=== PATIENT | male | born 1945 | race Hispanic/Latino ===

== ENCOUNTER 2018-07-30 13:41 | Inpatient (IN) | payer MEDICARE, SELFPAY ==
[~2018-07-30 13:41] MED LIST: ISOVUE-370 76%-LOCM 1 ML ONE
[2018-07-30 15:11] LABS: #Eosinphils 0.1 thou/uL (0.0-0.7); #Lymphocytes 0.9 thou/uL (1.20-3.40); #Monocytes 0.5 thou/uL (0.11-0.59); #Neutrophils 8.7 thou/uL (1.40-6.50); %Basophils 0.4 % (0.0-1.0); %Eosinophils 0.5 % (0.0-10.0); %Lymphocytes 9.2 % (21.0-51.0); %Neutrophils 84.9 % (42.0-75.0); Hemoglobin 18.1 g/dL (14.0-18.0); Mean Corpuscular HGB CONC 33.5 g/dL (32.0-36.0); Mean Corpuscular Hemoglobin 31.1 pg (27.0-31.0); Mean Platelet Volume 9.4 fL (7.4-10.4); Platelet Count 220 thou/uL (130-400); RBC Distribution Width 12.7 % (11.5-14.5); Red Blood Cell (RBC) Count 5.82 mill/uL (4.70-6.10); White Blood Cell (WBC) Count 10.2 thou/uL (4.8-10.8)
[2018-07-30 15:32] LABS: Bilirubin Small (Negative); Blood, Urine Negative (Negative); Clarity CLOUDY (Clear); Glucose, Urine (Dipstick) Negative (Negative); Leukocyte Trace (Negative); Nitrite Negative (Negative); Protein, Urine (Dipstick) 100 mg/dL (Neg-Trace); Specific Gravity, Urine 1.028 (1.002-1.036); Urobilinogen 0.2 mg/dL (0.2-1.0); pH, Urine 5.5 (5.0-9.0)
[2018-07-30 15:35] LABS: ALT (SGPT) 32 U/L (8-55); AST (SGOT) 18 U/L (5-34); Albumin 5.1 g/dL (3.4-4.8); Alkaline Phosphatase 80 U/L (40-150); Anion Gap 18 mmol/L (10-20); BUN (Urea Nitrogen) 39 mg/dL (8.4-25.7); Bilirubin, Total 0.8 mg/dL (0.2-1.2); Calc. Creatinine Clearance 0 mL/min (70-130); Calcium 10.6 mg/dL (7.8-10.44); Carbon Dioxide 24 mmol/L (23-31); Chloride 101 mmol/L (98-107); Estimated GFR-MDRD 40; Globulin 3.9 g/dL (2.4-3.5); Glucose 142 mg/dL (80-115); Lipase 24 U/L (8-78); Sodium 139 mmol/L (136-145)
[2018-07-30 15:36] LABS: Bacteria/HPF None Seen HPF (None Seen); Squamous Epithelial 0-3 HPF (0-3)
[2018-07-30 15:37] LABS: Pathc Cast-AUWi Flag 10.33 (0-2.49)
[2018-07-30 15:47] LABS: Other Casts/LPF 4-6 FINELY GRAN LPF (0-3 Hyaline)
[2018-07-30 15:48] LABS: RBC/HPF 0-3 HPF (0-3)
[2018-07-30 18:48] LABS: Troponin I Less than 0.010 ng/mL (< 0.028)
--- NOTE | 2018-07-30 18:59 | CT ---
CT abdomen with contrast CT pelvis with contrast: DATE: 07/30/2018 HISTORY: 72-year-old male with generalized abdominal pain and bloating COMPARISON: None TECHNIQUE: IV injection of iodinated contrast media:Administered Oral contrast media:Not administered FINDINGS: Dilated, fluid-filled numerous loops of small intestine throughout the abdominal cavity. Dilated, fluid-filled stomach. Gas in stomach and small intestine. There is also fluid and gas throug hout nondilated colon. No evidence of appendicitis. 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 No pneumoperitoneum or ascites. No abdominal aortic aneurysm. No hydronephrosis. Several bilateral round moderately low density lesions in the renal parenchyma, too small to characte rize. At least most of them are cysts. Several hepatic cysts. No biliary ductal dilation. Normal pancreas, adrenals, and spleen. Enlarged prostate gland. Distal ileum, including the terminal ileum, are not dilated Questionable transition points in the small intestine in left lower quadrant and the right lower quad rant. IMPRESSION: 1) abnormal bowel. Suspected to represent at least partial small bowel obstruction. The other possibi lities are gastroenteritis or ileus. 2) saccular aneurysm of left common iliac artery.
[2018-07-30] MEDS ORDERED: Sodium Chloride 0.9% 1,000 ML IV SCH (21:59)
[2018-07-30] MEDS ORDERED: Ondansetron PF 4 MG/2 ML Vial IVP PRN ×2 (21:59→22:10)
[2018-07-30] MEDS ORDERED: Morphine 4 MG/ML VIAL SLOW IVP PRN ×2 (22:01→22:10)
[2018-07-30] MEDS ORDERED: hydrALAZINE 20 MG/ML VIAL SLOW IVP PRN (22:10)
[2018-07-30] MEDS ORDERED: Acetaminophen 650 MG Suppository PR PRN (22:10)
[2018-07-30 22:18] VITALS: BMI 26.8
[2018-07-30] MEDS: Sodium Chloride 0.9% 1,000 ML IV SCH (22:24)
--- NOTE | 2018-07-30 22:42 | HP ---
PRIMARY CARE PHYSICIAN: Dr. Hakeem Poole. REASON FOR ADMISSION: Partial small-bowel obstruction. HISTORY OF PRESENT ILLNESS: A 72-year-old male who presented to emergency room with abdominal distention. The patient reports that yesterday, he had a liquidy bowel movement without any pus or blood. He had several loose the loose stool and since then, the patient is experiencing abdominal distention. He did not have any further bowel movement since yesterday and he denies any nausea and vomiting. He has experienced initially crampy abdominal discomfort, but now he only feels abdominal distention, which is gradually getting worse. He has bloating and he is burping, but he denies any vomiting. He never had this type of problem before. He did not eat since yesterday. The patient denies any unusual food ingestion. He denies any fever or chills. He denies any chest pain, palpitation, or shortness of breath. He denies any UTI symptoms. REVIEW OF SYSTEMS: CONSTITUTIONAL: Negative for weight loss or gain, ability to conduct usual activities. SKIN: Negative for rash, itching. EYES: Negative for double vision, pain. ENT/MOUTH: Negative for nose bleeding, neck stiffness, pain, tenderness. CARDIOVASCULAR: Negative for palpitations, dyspnea on exertion, orthopnea. RESPIRATORY: Negative for shortness of breath, wheezing, cough, hemoptysis, fever or night sweats. GASTROINTESTINAL: Negative for poor appetite, abdominal pain, heartburn, nausea, vomiting, constipation, or diarrhea. GENITOURINARY: Negative for urgency, frequency, dysuria, nocturia. MUSCULOSKELETAL: Negative for pain, swelling. NEUROLOGIC/PSYCHIATRIC: Negative for anxiety, depression. ALLERGY/IMMUNOLOGIC: Negative for skin rash, bleeding tendency. Please see my HPI for pertinent positives and negatives. All other review of systems reviewed and negative except as mentioned in HPI. PAST MEDICAL HISTORY: The patient denies any previous medical history. PAST SURGICAL HISTORY: Left hand surgery. PAST PSYCHIATRIC HISTORY: Reviewed and negative. SOCIAL HISTORY: The patient lives at home with family. No history of tobacco, alcohol, or illicit drug abuse. FAMILY HISTORY: No family history of coronary artery disease, stroke, or cancer. ALLERGIES: NO KNOWN DRUG ALLERGY. CURRENT HOME MEDICATIONS: The patient is not on any specific medication at this point. EMERGENCY ROOM COURSE: The patient is given IV fluid. PHYSICAL EXAMINATION: VITAL SIGNS: Currently, blood pressure 129/86, pulse 98, respiratory rate 12, temperature 98.6, saturation 99% on room air. Weight 81.6 kg. GENERAL: The patient is currently alert, awake, in no obvious acute distress. HEENT: Head; normocephalic, atraumatic. Eyes; pupils round, reactive to light. Extraocular muscle intact. ENT: Oropharynx within normal limits. Moist mucous membranes. No oral lesion. No pharyngeal erythema. No exudate. NECK: Supple. No JVD. No thyromegaly. No carotid bruit. No jugular venous distention. LUNGS: Clear to auscultation without any rhonchi or rales. CARDIAC: S1, S2 regular. No murmur. No gallop. No rub. ABDOMEN: The patient does have abdominal distention. Appears soft. No peritoneal sign. No guarding. No rigidity. Very sluggish bowel sound with a tinkling sound. No peritoneal sign. No suprapubic discomfort. BACK: Examination unremarkable. No CVA tenderness. EXTREMITIES: Upper extremity, passive movement of all joints are normal. Lower extremity, no edema. Good distal pulsation. SKIN: No skin rash. HEMATOLOGICAL SYSTEM: No lymphadenopathy. PSYCHIATRIC: Normal affect. SIGNIFICANT LABORATORY DATA: EKG showing sinus tachycardia, nonspecific ST-T changes. CT abdomen and pelvis showing abnormal bowel, suspected for partial small-bowel obstruction. Saccular aneurysm of left common iliac artery. CBC; WBC 10.2, hemoglobin 18.1, platelets 220. BMP; sodium 139, potassium 4.0, chloride 101, carbon dioxide 24, anion gap 18, BUN 39, creatinine 1.71, glucose 142, calcium 10.6. LFT; AST 18, ALT 32, alkaline phosphatase 80, albumin 5.1, lipase 24 less than 0.010. Urinalysis, leukocyte esterase trace, ketone trace, protein 100. ASSESSMENT AND PLAN: 1. Partial small-bowel obstruction. I am suspecting that this patient most likely has gastroenteritis and subsequent mild ileus rather than any mechanical obstruction. At this point, we will keep him n.p.o. General Surgery will be consulted for their opinion. We will treat symptomatologically and we will continue with the IV fluid for hydration. If the patient does have no recurrent nausea, vomiting, and abdominal distention gets worse, then we will consider NG tube with low intermittent suction if needed. At this point, clinically it does not appear to be needed at this point, NG tube, but we will closely monitor in hospital. 2. Acute kidney failure, likely due to volume depletion. The patient will be given IV fluid and we will repeat labs tomorrow. The patient has underlying hemoconcentration as well as elevated BUN and creatinine ratio, hypercalcemia and elevated albumin, all points towards dehydration. 3. Saccular aneurysm of left common iliac artery. The patient will need outpatient followup. At this point, the patient does not have any symptoms associated with this. 4. Enlarged prostate based on the CT scan, but the patient does not have any lower urinary tract symptoms. The patient will need outpatient followup. 5. Deep venous thrombosis prophylaxis, Lovenox 40 mg subcu daily. 6. Gastrointestinal prophylaxis, Pepcid 20 mg IV daily. CODE STATUS: The patient is full code. The patient's is surrogate decision maker. DISPOSITION PLAN: Based on clinical course. Plan of care discussed with the patient and family member in the emergency room in detail. Job ID: [id number]
[2018-07-31 06:06] LABS: #Lymphocytes 0.8 thou/uL (1.20-3.40); #Monocytes 0.7 thou/uL (0.11-0.59); #Neutrophils 6.1 thou/uL (1.40-6.50); %Basophils 0.5 % (0.0-1.0); %Eosinophils 0.3 % (0.0-10.0); %Lymphocytes 10.1 % (21.0-51.0); %Monocytes 9.3 % (0.0-10.0); %Neutrophils 79.8 % (42.0-75.0); Hemoglobin 15.8 g/dL (14.0-18.0); Mean Corpuscular HGB CONC 33.4 g/dL (32.0-36.0); Mean Corpuscular Hemoglobin 30.8 pg (27.0-31.0); Mean Corpuscular Volume 92.3 fL (78.0-98.0); Mean Platelet Volume 9.8 fL (7.4-10.4); Platelet Count 177 thou/uL (130-400); RBC Distribution Width 12.8 % (11.5-14.5); Red Blood Cell (RBC) Count 5.11 mill/uL (4.70-6.10); White Blood Cell (WBC) Count 7.6 thou/uL (4.8-10.8)
[2018-07-31 06:27] LABS: Anion Gap 14 mmol/L (10-20); BUN (Urea Nitrogen) 46 mg/dL (8.4-25.7); Calc. Creatinine Clearance 63 mL/min (70-130); Calcium 8.7 mg/dL (7.8-10.44); Carbon Dioxide 19 mmol/L (23-31); Chloride 110 mmol/L (98-107); Estimated GFR-MDRD 58; Glucose 124 mg/dL (80-115); Potassium 3.6 mmol/L (3.5-5.1); Sodium 139 mmol/L (136-145)
[2018-07-31] MEDS: Sodium Chloride 0.9% 1,000 ML IV SCH ×3 (06:30→22:16)
[2018-07-31] MEDS: Enoxaparin Sodium 40 MG/0.4 ML SYRINGE SC SCH (09:32)
[2018-07-31] MEDS: Famotidine/PF 20 mg/2ml Vial SLOW IVP SCH ×2 (09:32→22:16)
--- NOTE | 2018-07-31 15:38 | PDOC.PN ---
- Subjective Encounter Start Date: 07/31/18 Encounter Start Time: 09:50 Subjective: is passing liq stools, mild abd pain 3/10 worse on coughing/sneezing -: no nausea or vomiting -: multiple family members in room - Objective Resuscitation Status - Order Detail: 07/30/18 22:08 Resuscitation Status Routine Resuscitation Status: FULL: Full Resuscitation MAR Reviewed: Yes Vital Signs & Weight: Vital Signs (12 hours) Temp Pulse Resp BP Pulse Ox 07/31/18 12:00 98.3 F 69 16 123/70 97 07/31/18 07:40 97.6 F 71 16 116/71 95 07/31/18 04:13 98 F 89 20 118/65 95 Weight Weight 176 lb 9.6 oz I&O: 07/30/18 07/31/18 08/01/18 06:59 06:59 06:59 Intake Total 1200 Balance 1200 Result Diagrams: 07/31/18 05:22 07/31/18 05:22 Phys Exam - Physical Examination HEENT: PERRLA, sclera anicteric Neck: no JVD, supple Respiratory: no wheezing, no rales Cardiovascular: RRR, no significant murmur Gastrointestinal: soft, no distention, positive bowel sounds no rigidity or guarding Musculoskeletal: no edema, pulses present Neurological: non-focal, moves all 4 limbs Psychiatric: normal affect, A&O x 3 Dx/Plan (1) SBO (small bowel obstruction) Code(s): K56.609 - UNSP INTESTNL OBST, UNSP TO PARTIAL VERSUS COMPLETE OBST Status: Suspected (2) Gastroenteritis Code(s): K52.9 - NONINFECTIVE GASTROENTERITIS AND COLITIS, UNSPECIFIED Status : Suspected (3) Metabolic acidosis Code(s): E87.2 - ACIDOSIS Status: Acute (4) BLANCO (acute kidney injury) Code(s): N17.9 - ACUTE KIDNEY FAILURE, UNSPECIFIED Status: Acute (5) Aneurysm of left common iliac artery Code(s): I72.3 - ANEURYSM OF ILIAC ARTERY Status: Acute - Plan continue iv fluids, npo -: await gen surgery opinion -: may start clear liq diet if cleared by surgery -: to ambulate in hallway -: stool studies are -ve for bact infection * . renal function almost getting back to baseline. D/w patient and family at bedside. Review of Systems - Medications/Allergies Allergies/Adverse Reactions: Allergies Allergy/AdvReac Type Severity Reaction Status Date / Time No Known Drug Allergies Allergy Verified 07/30/18 21:59 Medications: Current Medications Acetaminophen (Tylenol) 650 mg [place] Q4H PRN PRN Reason: Headache/Fever/Mild Pain (1-3) Enoxaparin Sodium (Lovenox) 40 mg SC 0900 [facility] Last Admin: 07/31/18 09:32 Dose: 40 mg Famotidine (Pepcid) 20 mg SLOW IVP Q12HR [facility] Last Admin: 07/31/18 09:32 Dose: 20 mg Hydralazine HCl (Apresoline) 10 mg SLOW IVP Q4H PRN PRN Reason: SBP Greater Than 170 Sodium Chloride (Normal Saline 0.9%) 1,000 mls @ 125 mls/hr IV .Q8H [facility] Last Admin: 07/31/18 14:17 Dose: 1,000 mls Morphine Sulfate (Morphine) 2 mg SLOW IVP Q4H PRN PRN Reason: Pain Ondansetron HCl (Zofran) 4 mg IVP Q6H PRN PRN Reason: Nausea/Vomiting
--- NOTE | 2018-07-31 21:12 | PDOC.EVN ---
Event Note - Event Note Event Note: Called by RN re: need for general surgery consult. Has not been called yet and asked if still needed. Per note from Dr. Brown today, it appears plan is for advance diet once cleared by surgery. Advised RN to proceed with consult as per plan.
[2018-08-01] MEDS: Sodium Chloride 0.9% 1,000 ML IV SCH ×3 (05:59→20:43)
--- NOTE | 2018-08-01 08:01 | CON ---
DATE OF CONSULTATION: REASON FOR CONSULT: Partial small bowel obstruction versus ileus. HISTORY: Mr. Garza is a 72-year-old man with 1-day history of abdominal distention and nausea. He states that he had diarrhea, but then the diarrhea stopped and he became very distended and uncomfortable. The bloating got worse and burping did not help. He was unable to eat because of the bloating. He has two family members who have had diarrhea recently, but none of them have had bloating or nausea. When I saw him last night, he stated that he had had multiple liquid bowel movements that morning and that he was passing gas and that the bloating and discomfort and nausea had completely resolved. He has never had any previous similar symptoms and has never had abdominal surgery. The discomfort was diffuse and neither exacerbated nor relieved by anything that he did. PAST MEDICAL HISTORY: None. PAST SURGICAL HISTORY: Hand surgery after an injury. SOCIAL HISTORY: The patient does not smoke, drink, or use illicit drugs. He is in the hospital with his . FAMILY HISTORY: Noncontributory. ALLERGIES: HE HAS NO KNOWN DRUG ALLERGIES AND DOES NOT TAKE ANY HOME MEDICATIONS. REVIEW OF SYSTEMS: Ten system review of systems is negative except per HPI. PHYSICAL EXAMINATION: VITAL SIGNS: The patient has been afebrile through his hospital stay. Heart rate is in the 60s, respirations 16, 99% saturated on room air, blood pressure 117/49. GENERAL: Reveals a healthy-appearing gentleman, in no acute distress. He is not flushed, toxic, jaundiced or icteric. HEENT: Unremarkable. NECK: Supple without lymphadenopathy or thyroid nodules. HEART: Regular in its rate and rhythm without murmurs, rubs, or gallops. LUNGS: Clear to auscultation bilaterally. ABDOMEN: Soft, nontender, and nondistended. There is no tympany. Bowel sounds are present and appear normal. No palpable masses or hernias. EXTREMITIES: Warm and well perfused without edema. NEURO: No focal deficits. PSYCHIATRIC: Alert, oriented and appropriate. LABORATORY DATA: White count 7.6, hematocrit 47, platelets 177. Electrolytes unremarkable. LFTs normal. Urine had trace leukocytes and 7 to 10 white cells, but no bacteria. CT images are reviewed. The patient has very dilated proximal small bowel loops and stomach. The remainder of the small bowel is variably dilated with some areas of decompressed bowel, which then become dilated again. The distal small bowel is definitely smaller in caliber than the proximal small bowel, but not decompressed. The colon is not decompressed that has gas and fluid throughout. ASSESSMENT: Likely ileus. I cannot see a definite transition point in the small intestine, although the distal small bowel is definitely smaller than the proximal small bowel and stomach. The patient has had multiple episodes of diarrhea and his bloating and nausea have resolved. I have ordered an abdominal film for the morning and depending on how this looks, we can either advance his diet, keep him n.p.o. or get a small-bowel follow-through. Job ID: [id number]
[2018-08-01] MEDS: Enoxaparin Sodium 40 MG/0.4 ML SYRINGE SC SCH (08:06)
[2018-08-01] MEDS: Famotidine/PF 20 mg/2ml Vial SLOW IVP SCH ×2 (08:06→20:39)
--- NOTE | 2018-08-01 10:36 | RAD ---
EXAM: XR Abdomen 2 View PROVIDED CLINICAL HISTORY: Small bowel obstruction COMPARISON: CT examination of 07/30/2018 FINDINGS: The visualized lung bases appear clear. There is no evidence for pneumoperitoneum. Gas-filled loop of dilated small bowel in the right upper quadrant. Few scattered air-fluid levels. No evidence for urinary tract calculi. The osseous structures demonstrate no acute findings. IMPRESSION: Overall nonspecific bowel gas pattern with single dilated loop of gas-filled small bowel and scattere d air-fluid levels.
--- NOTE | 2018-08-01 13:09 | PDOC.PN ---
- Subjective Encounter Start Date: 08/01/18 Encounter Start Time: 10:45 Subjective: no nausea or vomiting -: abd pain is very mild, had 2 loose stool from yesterday -: is ambulating in hallway - Objective Resuscitation Status - Order Detail: 07/30/18 22:08 Resuscitation Status Routine Resuscitation Status: FULL: Full Resuscitation MAR Reviewed: Yes Vital Signs & Weight: Vital Signs (12 hours) Temp Pulse Resp BP Pulse Ox 08/01/18 11:09 97.5 F L 56 L 16 119/71 97 08/01/18 08:00 97.9 F 66 16 120/72 97 08/01/18 04:55 98.4 F 58 L 16 114/67 95 Weight Weight 176 lb 9.6 oz I&O: 07/31/18 08/01/18 08/02/18 06:59 06:59 06:59 Intake Total 1200 1500 Balance 1200 1500 Result Diagrams: 07/31/18 05:22 07/31/18 05:22 Phys Exam - Physical Examination HEENT: PERRLA, moist MMs Neck: no nodes, no JVD Respiratory: no wheezing, no rales Cardiovascular: RRR, no significant murmur Gastrointestinal: soft, no distention, positive bowel sounds Musculoskeletal: no edema, pulses present Neurological: non-focal, moves all 4 limbs Psychiatric: normal affect, A&O x 3 Dx/Plan (1) SBO (small bowel obstruction) Code(s): K56.609 - UNSP INTESTNL OBST, UNSP TO PARTIAL VERSUS COMPLETE OBST Status: Suspected (2) Gastroenteritis Code(s): K52.9 - NONINFECTIVE GASTROENTERITIS AND COLITIS, UNSPECIFIED Status : Suspected (3) Metabolic acidosis Code(s): E87.2 - ACIDOSIS Status: Acute (4) BLANCO (acute kidney injury) Code(s): N17.9 - ACUTE KIDNEY FAILURE, UNSPECIFIED Status: Resolved (5) Aneurysm of left common iliac artery Code(s): I72.3 - ANEURYSM OF ILIAC ARTERY Status: Chronic - Plan d/w this am, likely ileus -: has not had any solid stool yet, abd pain is better -: is npo -: gentle iv hydration, watch for electrolytes -: renal function is normal today * . Review of Systems - Medications/Allergies Allergies/Adverse Reactions: Allergies Allergy/AdvReac Type Severity Reaction Status Date / Time No Known Drug Allergies Allergy Verified 07/30/18 21:59 Medications: Current Medications Acetaminophen (Tylenol) 650 mg [place] Q4H PRN PRN Reason: Headache/Fever/Mild Pain (1-3) Enoxaparin Sodium (Lovenox) 40 mg SC 0900 [facility] Last Admin: 08/01/18 08:06 Dose: 40 mg Famotidine (Pepcid) 20 mg SLOW IVP Q12HR [facility] Last Admin: 08/01/18 08:06 Dose: 20 mg Hydralazine HCl (Apresoline) 10 mg SLOW IVP Q4H PRN PRN Reason: SBP Greater Than 170 Sodium Chloride (Normal Saline 0.9%) 1,000 mls @ 125 mls/hr IV .Q8H [facility] Last Admin: 08/01/18 05:59 Dose: 1,000 mls Morphine Sulfate (Morphine) 2 mg SLOW IVP Q4H PRN PRN Reason: Pain Ondansetron HCl (Zofran) 4 mg IVP Q6H PRN PRN Reason: Nausea/Vomiting
[2018-08-02] MEDS: Sodium Chloride 0.9% 1,000 ML IV SCH (06:33)
[2018-08-02] MEDS: Enoxaparin Sodium 40 MG/0.4 ML SYRINGE SC SCH (07:50)
[2018-08-02] MEDS: Famotidine/PF 20 mg/2ml Vial SLOW IVP SCH (07:51)
[2018-08-02 08:41] LABS: #Eosinphils 0.1 thou/uL (0.0-0.7); #Lymphocytes 1.2 thou/uL (1.20-3.40); #Monocytes 0.4 thou/uL (0.11-0.59); %Basophils 0.5 % (0.0-1.0); %Eosinophils 1.6 % (0.0-10.0); %Lymphocytes 25.4 % (21.0-51.0); %Monocytes 8.4 % (0.0-10.0); %Neutrophils 64.1 % (42.0-75.0); Hemoglobin 14.7 g/dL (14.0-18.0); Mean Corpuscular HGB CONC 34.3 g/dL (32.0-36.0); Mean Corpuscular Hemoglobin 31.9 pg (27.0-31.0); Mean Corpuscular Volume 92.8 fL (78.0-98.0); Mean Platelet Volume 8.9 fL (7.4-10.4); Platelet Count 182 thou/uL (130-400); RBC Distribution Width 12.4 % (11.5-14.5); Red Blood Cell (RBC) Count 4.62 mill/uL (4.70-6.10); White Blood Cell (WBC) Count 4.7 thou/uL (4.8-10.8)
[2018-08-02 08:59] LABS: Anion Gap 6 mmol/L (10-20); BUN (Urea Nitrogen) 15 mg/dL (8.4-25.7); Calc. Creatinine Clearance 95 mL/min (70-130); Calcium 8.5 mg/dL (7.8-10.44); Carbon Dioxide 28 mmol/L (23-31); Chloride 110 mmol/L (98-107); Estimated GFR-MDRD Greater than 90; Glucose 92 mg/dL (80-115); Potassium 3.8 mmol/L (3.5-5.1); Sodium 140 mmol/L (136-145)
--- NOTE | 2018-08-02 11:31 | RAD ---
EXAM: 2 views abdomen PROVIDED CLINICAL HISTORY: Abdominal pain COMPARISON: 08/01/2018 FINDINGS: Visualized lung bases appear clear. Bowel gas pattern is nonobstructive. No radiographically apparent urinary tract calculi. No evidence for pneumoperitoneum. IMPRESSION: Nonobstructive bowel gas pattern.
[2018-08-02 11:53] VITALS: BP 138/77; TEMP 97.6
--- NOTE | 2018-08-02 12:25 | PDOC.GSPN ---
Surgery Progress Note: Subj - Subjective Narrative: Patient feels good. He denies any nausea or bloating. He has passed gas but hasn 't had a bowel movement. His abdominal films are unremarkable. No evidence of dilated small bowel loops or gastric distention. Abdomen is soft nontender nondistended. Bowel sounds are present. Assessment/plan: Partial small bowel obstruction versus more likely ileus. His symptoms have resolved and he is tolerating a full liquid diet. From my standpoint he can be discharged home, with slow advancement of diet as tolerated. Surgery Progress Note: Obj - Vital signs Vital signs: Vital Signs - Most Recent Temp Pulse Resp BP Pulse Ox 97.6 F 53 L 16 138/77 99 08/02/18 11:49 08/02/18 11:49 08/02/18 11:49 08/02/18 11:49 08/02/18 11:49 Surgery Progress Note: Results - Labs Result Diagrams: 08/02/18 08:08 08/02/18 08:08 Lab results: Laboratory Results - last 24 hr 08/02/18 08/02/18 08:08 08:08 WBC 4.7 L RBC 4.62 L Hgb 14.7 Hct 42.9 MCV 92.8 MCH 31.9 H MCHC 34.3 RDW 12.4 Plt Count 182 MPV 8.9 Neutrophils % 64.1 Lymphocytes % 25.4 Monocytes % 8.4 Eosinophils % 1.6 Basophils % 0.5 Neutrophils # 3.0 Lymphocytes # 1.2 Monocytes # 0.4 Eosinophils # 0.1 Basophils # 0.0 Sodium 140 Potassium 3.8 Chloride 110 H Carbon Dioxide 28 Anion Gap 6 L BUN 15 Creatinine 0.82 Estimated GFR (MDRD) Greater than 90 Glucose 92 Calcium 8.5
--- NOTE | 2018-08-02 12:29 | PDOC.PN ---
- Subjective Encounter Start Date: 08/02/18 Encounter Start Time: 11:00 Subjective: no abd pain or nausea -: is passing flatus, had a small bm -: is ambulating in hallway, at bedside - Objective Resuscitation Status - Order Detail: 07/30/18 22:08 Resuscitation Status Routine Resuscitation Status: FULL: Full Resuscitation MAR Reviewed: Yes Vital Signs & Weight: Vital Signs (12 hours) Temp Pulse Resp BP Pulse Ox 08/02/18 11:49 97.6 F 53 L 16 138/77 99 08/02/18 07:59 97.7 F 61 16 123/71 97 08/02/18 04:00 97.9 F 61 18 112/62 96 Weight Weight 176 lb 9.6 oz I&O: 08/01/18 08/02/18 08/03/18 06:59 06:59 06:59 Intake Total 1500 2940 720 Balance 1500 2940 720 Result Diagrams: 08/02/18 08:08 08/02/18 08:08 Phys Exam - Physical Examination HEENT: PERRLA, moist MMs Neck: no JVD, supple Respiratory: no wheezing, no rales Cardiovascular: RRR, no significant murmur Gastrointestinal: soft, non-tender, no distention, positive bowel sounds Musculoskeletal: no edema, pulses present Neurological: non-focal, moves all 4 limbs Psychiatric: normal affect, A&O x 3 Dx/Plan (1) SBO (small bowel obstruction) Code(s): K56.609 - UNSP INTESTNL OBST, UNSP TO PARTIAL VERSUS COMPLETE OBST Status: Resolved (2) Metabolic acidosis Code(s): E87.2 - ACIDOSIS Status: Acute (3) BLANCO (acute kidney injury) Code(s): N17.9 - ACUTE KIDNEY FAILURE, UNSPECIFIED Status: Resolved (4) Aneurysm of left common iliac artery Code(s): I72.3 - ANEURYSM OF ILIAC ARTERY Status: Chronic - Plan hemostable -: has been cleared by gen surgery for discharge -: outpt appt with [facility] surgery for aneurysm in 4-6 weeks. -: to advance diet per gen surgery rec * .
--- NOTE | 2018-08-02 18:52 | DIS ---
DATE OF ADMISSION: 07/30/2018 DATE OF DISCHARGE: 08/02/2018 DISCHARGE DISPOSITION: Home. PRIMARY DISCHARGE DIAGNOSES: Partial small bowel obstruction/ileus, resolved. Metabolic acidosis with acute kidney injury secondary to above, resolved. Incidental finding of saccular aneurysm of left common iliac artery, for outpatient followup. PROCEDURES DONE DURING HOSPITALIZATION: CT abdomen showed partial small bowel obstruction. There was incidental finding of saccular aneurysm of left common iliac artery, which was 3 cm in size and had partial chronic thrombosis in it. Two- view abdominal x-ray done on 08/02/2018, showed nonobstructive bowel gas pattern. Stool studies for Campylobacter, Shiga toxin and parasite screen were all negative. H and H 14 and 42 platelet count 182. Initial BUN and creatinine 39 and 1.7, discharge BUN creatinine of 15 and 0.8. DISCHARGE MEDICATION: Colace 100 mg p.o. daily. INPATIENT CONSULT: Dr. Norton for General Surgery. DISCHARGE PLAN: The patient to follow up with Dr. Alexy Hernández in 2 to 3 weeks for the saccular aneurysm in the left common iliac artery. He also needs to follow up with his primary care physician in 1 week. BRIEF COURSE DURING HOSPITALIZATION: The patient initially came to emergency room on the with complaints of abdominal distention and pain. Initial CAT scan done was suspicious for possible partial small bowel obstruction. The patient was kept n.p.o. and has had surgical consultation with Dr. Norton. He has had serial abdominal 2-view x-rays done, which shows complete resolution of his partial small-bowel obstruction/ileus. Prior to discharge, he is tolerating solid food and is ambulating well. His abdominal pain and distention have completely resolved. He is passing flatus and had a small bowel movement as well this morning. He has been cleared by Dr. Norton for discharge. Please see a [id number] documentation for the day of discharge on [facility]. Please note, the patient had incidental finding of left common iliac artery saccular aneurysm seen and needs outpatient followup with Dr. Hernández in 2 to 3 weeks, Cardiothoracic and Vascular Surgery. Job ID: [id number] [facility]
== END 2018-08-02 13:05 | disposition home or self-care (01) | DRG 389 ==
LOC: ERS 13:41 → SURG A 22:03
PROVIDERS: ADMIT Internal Medicine; ATTEND Internal Medicine
DX: K56.600 Partial intestinal obstruction, unspecified as to cause (principal); E87.2 Acidosis; N17.9 Acute kidney failure, unspecified; I72.3 Aneurysm of iliac artery; N40.0 Benign prostatic hyperplasia without lower urinary tract symptoms; K52.9 Noninfective gastroenteritis and colitis, unspecified
CPT/HCPCS: 36415; 74019; 74177; 80048; 80053; 81003; 81015; 83690; 84484; 85025; 87045; 87046; 87328; 87329; 87449; 87899; 93005; 96360; 96361; J1650; Q9966; S0028

== ENCOUNTER 2021-07-30 11:26 | Inpatient (IN) | payer MEDICARE ==
[2021-07-30 12:55] LABS: #Eosinphils 0.1 thou/uL (0.0-0.7); #Lymphocytes 0.9 thou/uL (1.20-3.40); #Monocytes 0.4 thou/uL (0.11-0.59); #Neutrophils 3.1 thou/uL (1.40-6.50); %Eosinophils 1.6 % (0.0-10.0); %Lymphocytes 19.4 % (21.0-51.0); %Monocytes 8.9 % (0.0-10.0); %Neutrophils 70.1 % (42.0-75.0); Hemoglobin 8.7 g/dL (14.0-18.0); Mean Corpuscular HGB CONC 33.6 g/dL (32.0-36.0); Mean Corpuscular Hemoglobin 32.4 pg (27.0-31.0); Mean Corpuscular Volume 96.5 fL (78.0-98.0); Mean Platelet Volume 8.4 fL (7.4-10.4); Platelet Count 145 thou/uL (130-400); RBC Distribution Width 12.6 % (11.5-14.5); White Blood Cell (WBC) Count 4.5 thou/uL (4.8-10.8)
[2021-07-30 13:15] LABS: ALT (SGPT) 10 U/L (8-55); AST (SGOT) 9 U/L (5-34); Albumin 3.6 g/dL (3.4-4.8); Alkaline Phosphatase 51 U/L (40-110); Anion Gap 14 mmol/L (10-20); BUN (Urea Nitrogen) 70 mg/dL (8.4-25.7); Bilirubin, Total 0.4 mg/dL (0.2-1.2); Calc. Creatinine Clearance 0 mL/min (70-130); Calcium 8.5 mg/dL (7.8-10.44); Carbon Dioxide 18 mmol/L (23-31); Glucose 122 mg/dL (83-110); Potassium 5.3 mmol/L (3.5-5.1); Protein, Total 6.6 g/dL (5.8-8.1); Sodium 142 mmol/L (136-145)
[2021-07-30 13:23] LABS: Chloride 115 mmol/L (98-107)
[2021-07-30 13:34] LABS: INR-International Normal Ratio 1.2; PTT 34.2 sec (22.9-36.1); Prothrombin Time 15.3 sec (12.0-14.7)
[2021-07-30 13:40] LABS: Bilirubin Negative (Negative); Blood, Urine Negative (Negative); Clarity Clear (Clear); Glucose, Urine (Dipstick) Normal (Negative); Ketone, Urine Negative (Negative); Leukocyte Negative Leu/uL (Negative); Nitrite Negative (Negative); Protein, Urine (Dipstick) Negative (Neg-Trace); Specific Gravity, Urine 1.009 (1.002-1.036); Urobilinogen Normal mg/dL (Less than 2); pH, Urine 5.5 (5.0-9.0)
[2021-07-30] MEDS ORDERED: Acetaminophen 325 MG TAB PO PRN (15:11)
[2021-07-30] MEDS ORDERED: Ondansetron PF 4 MG/2 ML Vial IVP PRN (15:11)
[2021-07-30] MEDS ORDERED: Sodium Bicarbonate 50 MEQ in Sodium Chloride 0.45% 1,000 ML IV SCH (15:15)
[2021-07-30] MEDS ORDERED: Morphine 2 MG/ML VIAL SLOW IVP PRN (15:17)
[2021-07-30] MEDS ORDERED: NIFEdipine XL 30 MG TAB PO SCH (15:30)
[2021-07-30 15:38] LABS: Hemoglobin 9.1 g/dL (14.0-18.0); Platelet Count 164 thou/uL (130-400)
[2021-07-30 16:12] LABS: Iron 55 ug/dL (65-175); Iron Binding Capacity, Total 230 mcg/dL (261-462)
[2021-07-30 18:32] VITALS: BMI 27.3
[2021-07-30 20:07] LABS: Hemoglobin 9.5 g/dL (14.0-18.0); Platelet Count 172 thou/uL (130-400)
[2021-07-30] MEDS: Heparin 10,000 UNITS/ 10 ML VIAL SLOW IVP SCH (20:50)
[2021-07-30] MEDS: Heparin 25,000 units/D5W 500 ML IVPB SCH (20:52)
[2021-07-31 03:22] LABS: #Eosinphils 0.1 thou/uL (0.0-0.7); #Lymphocytes 0.9 thou/uL (1.20-3.40); #Monocytes 0.4 thou/uL (0.11-0.59); #Neutrophils 5.7 thou/uL (1.40-6.50); %Basophils 0.2 % (0.0-1.0); %Eosinophils 0.9 % (0.0-10.0); %Lymphocytes 13.1 % (21.0-51.0); %Monocytes 5.6 % (0.0-10.0); %Neutrophils 80.2 % (42.0-75.0); Hemoglobin 10.1 g/dL (14.0-18.0); Mean Corpuscular HGB CONC 33.7 g/dL (32.0-36.0); Mean Corpuscular Hemoglobin 32.4 pg (27.0-31.0); Mean Corpuscular Volume 96.1 fL (78.0-98.0); Mean Platelet Volume 8.7 fL (7.4-10.4); Platelet Count 185 thou/uL (130-400); White Blood Cell (WBC) Count 7.2 thou/uL (4.8-10.8)
[2021-07-31 03:32] LABS: PTT 127.6 sec (22.9-36.1)
[2021-07-31 03:39] LABS: Anion Gap 16 mmol/L (10-20); BUN (Urea Nitrogen) 67 mg/dL (8.4-25.7); Calc. Creatinine Clearance 10 mL/min (70-130); Calcium 8.3 mg/dL (7.8-10.44); Carbon Dioxide 17 mmol/L (23-31); Chloride 113 mmol/L (98-107); Glucose 116 mg/dL (83-110); Phosphorus 5.7 mg/dL (2.3-4.7); Potassium 4.6 mmol/L (3.5-5.1); Sodium 141 mmol/L (136-145)
[2021-07-31] MEDS: NIFEdipine XL 60 MG TAB PO SCH (09:10)
[2021-07-31] MEDS: Calcitriol 0.25 MCG CAP PO SCH (09:11)
[2021-07-31] MEDS: Sevelamer Carbonate 800 MG TAB PO SCH ×2 (11:22→17:32)
[2021-07-31 12:12] LABS: SARS-CoV-2 PCR by NAA Not Detected (NotDetected)
[2021-07-31] MEDS: Heparin 10,000 UNITS/ 10 ML VIAL SLOW IVP SCH (12:50)
[2021-07-31] MEDS: Ferrous Sulfate 325 MG TAB PO SCH (17:32)
[2021-07-31] MEDS: Heparin 25,000 units/D5W 500 ML IVPB SCH (17:42)
[2021-08-01 04:48] LABS: #Eosinphils 0.1 thou/uL (0.0-0.7); #Lymphocytes 0.9 thou/uL (1.20-3.40); #Monocytes 0.4 thou/uL (0.11-0.59); #Neutrophils 5.6 thou/uL (1.40-6.50); %Basophils 0.2 % (0.0-1.0); %Monocytes 5.4 % (0.0-10.0); %Neutrophils 80.3 % (42.0-75.0); Hemoglobin 9.6 g/dL (14.0-18.0); Mean Corpuscular HGB CONC 32.9 g/dL (32.0-36.0); Mean Corpuscular Hemoglobin 31.6 pg (27.0-31.0); Mean Platelet Volume 8.6 fL (7.4-10.4); Platelet Count 188 thou/uL (130-400); RBC Distribution Width 12.8 % (11.5-14.5); Red Blood Cell (RBC) Count 3.03 mill/uL (4.70-6.10)
[2021-08-01 05:05] LABS: Anion Gap 15 mmol/L (10-20); BUN (Urea Nitrogen) 64 mg/dL (8.4-25.7); Calc. Creatinine Clearance 10 mL/min (70-130); Calcium 8.1 mg/dL (7.8-10.44); Carbon Dioxide 18 mmol/L (23-31); Chloride 107 mmol/L (98-107); Glucose 125 mg/dL (83-110); Sodium 136 mmol/L (136-145)
[2021-08-01] MEDS: Ferrous Sulfate 325 MG TAB PO SCH ×2 (08:58→17:10)
[2021-08-01] MEDS: Sevelamer Carbonate 800 MG TAB PO SCH ×3 (08:58→17:10)
[2021-08-01] MEDS: Calcitriol 0.25 MCG CAP PO SCH (08:59)
[2021-08-01] MEDS: NIFEdipine XL 60 MG TAB PO SCH (08:59)
[2021-08-01] MEDS: Heparin 25,000 units/D5W 500 ML IVPB SCH (12:12)
[2021-08-01 15:34] LABS: Hemoglobin 9.8 g/dL (14.0-18.0); Platelet Count 210 thou/uL (130-400)
[2021-08-01] MEDS: Tamsulosin HCl 0.4 MG CAP PO SCH (21:08)
[2021-08-02 04:38] LABS: #Eosinphils 0.1 thou/uL (0.0-0.7); #Lymphocytes 1.3 thou/uL (1.20-3.40); #Monocytes 0.4 thou/uL (0.11-0.59); #Neutrophils 4.5 thou/uL (1.40-6.50); %Eosinophils 2.2 % (0.0-10.0); %Lymphocytes 20.9 % (21.0-51.0); %Monocytes 6.3 % (0.0-10.0); %Neutrophils 70.7 % (42.0-75.0); Hemoglobin 9.4 g/dL (14.0-18.0); Mean Corpuscular HGB CONC 33.8 g/dL (32.0-36.0); Mean Corpuscular Hemoglobin 32.3 pg (27.0-31.0); Mean Corpuscular Volume 95.6 fL (78.0-98.0); Mean Platelet Volume 8.1 fL (7.4-10.4); Platelet Count 180 thou/uL (130-400); RBC Distribution Width 12.5 % (11.5-14.5); White Blood Cell (WBC) Count 6.3 thou/uL (4.8-10.8)
[2021-08-02 04:55] LABS: Anion Gap 16 mmol/L (10-20); BUN (Urea Nitrogen) 63 mg/dL (8.4-25.7); Calc. Creatinine Clearance 11 mL/min (70-130); Carbon Dioxide 21 mmol/L (23-31); Chloride 105 mmol/L (98-107); Glucose 115 mg/dL (83-110); Potassium 3.8 mmol/L (3.5-5.1); Sodium 138 mmol/L (136-145)
[2021-08-02] MEDS: Heparin 25,000 units/D5W 500 ML IVPB SCH (06:42)
[2021-08-02] MEDS: Sevelamer Carbonate 800 MG TAB PO SCH ×3 (08:50→18:04)
[2021-08-02] MEDS: Ferrous Sulfate 325 MG TAB PO SCH ×2 (08:50→18:04)
[2021-08-02] MEDS: NIFEdipine XL 60 MG TAB PO SCH (08:50)
[2021-08-02] MEDS: Calcitriol 0.25 MCG CAP PO SCH (08:50)
[2021-08-02] MEDS ORDERED: Mag-Al 1200 mg/1200 mg/30 ML UDCUP PO PRN (10:52)
[2021-08-02] MEDS: Tamsulosin HCl 0.4 MG CAP PO SCH (19:45)
[2021-08-03] MEDS: Heparin 25,000 units/D5W 500 ML IVPB SCH ×2 (01:12→20:06)
[2021-08-03 04:22] LABS: #Eosinphils 0.2 thou/uL (0.0-0.7); #Lymphocytes 1.5 thou/uL (1.20-3.40); #Monocytes 0.4 thou/uL (0.11-0.59); #Neutrophils 5.3 thou/uL (1.40-6.50); %Basophils 0.4 % (0.0-1.0); %Eosinophils 2.4 % (0.0-10.0); %Lymphocytes 19.8 % (21.0-51.0); %Monocytes 5.6 % (0.0-10.0); %Neutrophils 71.9 % (42.0-75.0); Hemoglobin 9.9 g/dL (14.0-18.0); Mean Corpuscular HGB CONC 34.5 g/dL (32.0-36.0); Mean Corpuscular Hemoglobin 32.7 pg (27.0-31.0); Mean Platelet Volume 8.1 fL (7.4-10.4); Platelet Count 209 thou/uL (130-400); RBC Distribution Width 12.2 % (11.5-14.5); Red Blood Cell (RBC) Count 3.02 mill/uL (4.70-6.10); White Blood Cell (WBC) Count 7.4 thou/uL (4.8-10.8)
[2021-08-03 04:45] LABS: Anion Gap 15 mmol/L (10-20); BUN (Urea Nitrogen) 57 mg/dL (8.4-25.7); Calc. Creatinine Clearance 13 mL/min (70-130); Calcium 8.6 mg/dL (7.8-10.44); Carbon Dioxide 24 mmol/L (23-31); Chloride 104 mmol/L (98-107); Glucose 117 mg/dL (83-110); Potassium 3.9 mmol/L (3.5-5.1); Sodium 139 mmol/L (136-145)
[2021-08-03] MEDS: Calcitriol 0.25 MCG CAP PO SCH (08:56)
[2021-08-03] MEDS: NIFEdipine XL 60 MG TAB PO SCH (08:56)
[2021-08-03] MEDS: Sevelamer Carbonate 800 MG TAB PO SCH ×3 (08:56→17:11)
[2021-08-03] MEDS: Ferrous Sulfate 325 MG TAB PO SCH ×2 (08:56→17:11)
[2021-08-03 15:36] LABS: Platelet Count 217 thou/uL (130-400)
[2021-08-03] MEDS: Tamsulosin HCl 0.4 MG CAP PO SCH (20:05)
[2021-08-04 07:07] LABS: PTT 139.5 sec (22.9-36.1)
[2021-08-04 07:47] LABS: Anion Gap 16 mmol/L (10-20); BUN (Urea Nitrogen) 53 mg/dL (8.4-25.7); Calc. Creatinine Clearance 15 mL/min (70-130); Calcium 8.8 mg/dL (7.8-10.44); Carbon Dioxide 22 mmol/L (23-31); Chloride 102 mmol/L (98-107); Glucose 104 mg/dL (83-110); Potassium 4.1 mmol/L (3.5-5.1); Sodium 136 mmol/L (136-145)
[2021-08-04] MEDS: Calcitriol 0.25 MCG CAP PO SCH (08:30)
[2021-08-04] MEDS: NIFEdipine XL 60 MG TAB PO SCH (08:30)
[2021-08-04] MEDS: Ferrous Sulfate 325 MG TAB PO SCH ×2 (08:30→16:37)
[2021-08-04] MEDS: Sevelamer Carbonate 800 MG TAB PO SCH ×3 (08:30→16:37)
[2021-08-04] MEDS: Heparin 25,000 units/D5W 500 ML IVPB SCH (18:04)
[2021-08-04] MEDS: Tamsulosin HCl 0.4 MG CAP PO SCH (20:29)
[2021-08-05 07:15] LABS: #Eosinphils 0.1 thou/uL (0.0-0.7); #Lymphocytes 1.4 thou/uL (1.20-3.40); #Monocytes 0.5 thou/uL (0.11-0.59); #Neutrophils 4.8 thou/uL (1.40-6.50); %Basophils 0.5 % (0.0-1.0); %Eosinophils 2.1 % (0.0-10.0); %Lymphocytes 20.4 % (21.0-51.0); %Monocytes 7.6 % (0.0-10.0); %Neutrophils 69.4 % (42.0-75.0); Hemoglobin 9.9 g/dL (14.0-18.0); Mean Corpuscular HGB CONC 34.7 g/dL (32.0-36.0); Mean Corpuscular Volume 95.2 fL (78.0-98.0); Mean Platelet Volume 8.3 fL (7.4-10.4); Platelet Count 219 thou/uL (130-400); RBC Distribution Width 12.5 % (11.5-14.5); Red Blood Cell (RBC) Count 3.01 mill/uL (4.70-6.10); White Blood Cell (WBC) Count 6.9 thou/uL (4.8-10.8)
[2021-08-05 07:37] LABS: Anion Gap 17 mmol/L (10-20); BUN (Urea Nitrogen) 51 mg/dL (8.4-25.7); Calc. Creatinine Clearance 18 mL/min (70-130); Calcium 8.8 mg/dL (7.8-10.44); Carbon Dioxide 19 mmol/L (23-31); Chloride 103 mmol/L (98-107); Glucose 105 mg/dL (83-110); Potassium 3.8 mmol/L (3.5-5.1); Sodium 135 mmol/L (136-145)
[2021-08-05 08:06] LABS: PTT 190.9 sec (22.9-36.1)
[2021-08-05] MEDS: Calcitriol 0.25 MCG CAP PO SCH (08:24)
[2021-08-05] MEDS: Ferrous Sulfate 325 MG TAB PO SCH ×2 (08:24→16:54)
[2021-08-05] MEDS: Sevelamer Carbonate 800 MG TAB PO SCH ×3 (08:27→16:54)
[2021-08-05] MEDS: NIFEdipine XL 60 MG TAB PO SCH (08:27)
[2021-08-05] MEDS ORDERED: Alogliptin 6.25 MG TAB PO SCH (09:00)
[2021-08-05 09:50] LABS: Prothrombin Time 13.3 sec (12.0-14.7)
[2021-08-05] MEDS: Heparin 10,000 UNITS/ 10 ML VIAL SLOW IVP SCH (14:01)
[2021-08-05] MEDS: Heparin 25,000 units/D5W 500 ML IVPB SCH (14:20)
[2021-08-05 16:01] LABS: Hemoglobin 10.1 g/dL (14.0-18.0); Platelet Count 245 thou/uL (130-400)
[2021-08-05] MEDS ORDERED: Warfarin Sodium 2.5 MG TAB PO SCH (17:00)
[2021-08-05] MEDS: Tamsulosin HCl 0.4 MG CAP PO SCH (20:49)
[2021-08-05] MEDS: Atorvastatin Calcium 10 MG TAB PO SCH (20:49)
[2021-08-06 04:53] LABS: #Eosinphils 0.2 thou/uL (0.0-0.7); #Lymphocytes 1.3 thou/uL (1.20-3.40); #Monocytes 0.6 thou/uL (0.11-0.59); #Neutrophils 5.2 thou/uL (1.40-6.50); %Basophils 0.3 % (0.0-1.0); %Eosinophils 2.7 % (0.0-10.0); %Lymphocytes 17.9 % (21.0-51.0); %Monocytes 8.1 % (0.0-10.0); %Neutrophils 70.9 % (42.0-75.0); Hemoglobin 9.1 g/dL (14.0-18.0); Mean Corpuscular HGB CONC 34.2 g/dL (32.0-36.0); Mean Corpuscular Hemoglobin 32.4 pg (27.0-31.0); Mean Corpuscular Volume 94.7 fL (78.0-98.0); Mean Platelet Volume 8.1 fL (7.4-10.4); Platelet Count 210 thou/uL (130-400); RBC Distribution Width 12.5 % (11.5-14.5); Red Blood Cell (RBC) Count 2.81 mill/uL (4.70-6.10); White Blood Cell (WBC) Count 7.4 thou/uL (4.8-10.8)
[2021-08-06 05:03] LABS: Prothrombin Time 13.4 sec (12.0-14.7)
[2021-08-06 05:04] LABS: Hemoglobin A1c 5.6 % (4.0-6.0)
[2021-08-06 05:18] LABS: Anion Gap 15 mmol/L (10-20); BUN (Urea Nitrogen) 56 mg/dL (8.4-25.7); Calc. Creatinine Clearance 19 mL/min (70-130); Calcium 8.8 mg/dL (7.8-10.44); Carbon Dioxide 24 mmol/L (23-31); Chloride 101 mmol/L (98-107); Glucose 115 mg/dL (83-110); Potassium 3.9 mmol/L (3.5-5.1); Sodium 136 mmol/L (136-145)
[2021-08-06 05:35] LABS: PTT 149.2 sec (22.9-36.1)
[2021-08-06] MEDS ORDERED: Epoetin (ESRD) 20,000 UNITS/ML SC SCH (07:15)
[2021-08-06] MEDS: Calcitriol 0.25 MCG CAP PO SCH (08:17)
[2021-08-06] MEDS: Sevelamer Carbonate 800 MG TAB PO SCH ×3 (08:17→17:18)
[2021-08-06] MEDS: Ferrous Sulfate 325 MG TAB PO SCH ×2 (08:17→17:17)
[2021-08-06] MEDS: NIFEdipine XL 60 MG TAB PO SCH (08:17)
[2021-08-06] MEDS ORDERED: Warfarin Sodium 2.5 MG TAB PO SCH (08:27)
[2021-08-06] MEDS ORDERED: EPOETIN ALFA-EPBX (ESRD) 10,000 UNIT/ML VIAL SC SCH (12:00)
[2021-08-06] MEDS ORDERED: Warfarin Sodium 5 MG TAB PO SCH (17:00)
[2021-08-06 20:02] LABS: SARS-CoV-2 PCR by NAA Not Detected (NotDetected)
[2021-08-06] MEDS: Atorvastatin Calcium 10 MG TAB PO SCH (22:33)
[2021-08-06] MEDS: Tamsulosin HCl 0.4 MG CAP PO SCH (22:33)
[2021-08-07] MEDS: Heparin 25,000 units/D5W 500 ML IVPB SCH ×2 (01:09→19:27)
[2021-08-07 06:22] LABS: #Eosinphils 0.2 thou/uL (0.0-0.7); #Lymphocytes 1.2 thou/uL (1.20-3.40); #Monocytes 0.7 thou/uL (0.11-0.59); #Neutrophils 4.6 thou/uL (1.40-6.50); %Basophils 0.5 % (0.0-1.0); %Eosinophils 3.3 % (0.0-10.0); %Lymphocytes 18.2 % (21.0-51.0); Hemoglobin 9.3 g/dL (14.0-18.0); Mean Corpuscular HGB CONC 34.5 g/dL (32.0-36.0); Mean Corpuscular Hemoglobin 32.7 pg (27.0-31.0); Mean Corpuscular Volume 94.8 fL (78.0-98.0); Mean Platelet Volume 8.3 fL (7.4-10.4); Platelet Count 200 thou/uL (130-400); RBC Distribution Width 12.5 % (11.5-14.5); Red Blood Cell (RBC) Count 2.84 mill/uL (4.70-6.10); White Blood Cell (WBC) Count 6.8 thou/uL (4.8-10.8)
[2021-08-07 06:30] LABS: INR-International Normal Ratio 1.1; Prothrombin Time 14.1 sec (12.0-14.7)
[2021-08-07 06:45] LABS: Anion Gap 13 mmol/L (10-20); BUN (Urea Nitrogen) 54 mg/dL (8.4-25.7); Calc. Creatinine Clearance 19 mL/min (70-130); Carbon Dioxide 24 mmol/L (23-31); Chloride 103 mmol/L (98-107); Glucose 110 mg/dL (83-110); Potassium 4.3 mmol/L (3.5-5.1); Sodium 136 mmol/L (136-145)
[2021-08-07 07:36] LABS: PTT 125.7 sec (22.9-36.1)
[2021-08-07] MEDS: NIFEdipine XL 60 MG TAB PO SCH (08:23)
[2021-08-07] MEDS: Calcitriol 0.25 MCG CAP PO SCH (08:23)
[2021-08-07] MEDS: Ferrous Sulfate 325 MG TAB PO SCH ×2 (08:23→17:01)
[2021-08-07] MEDS: Sevelamer Carbonate 800 MG TAB PO SCH ×3 (08:23→17:01)
[2021-08-07 14:21] LABS: Hemoglobin 10.1 g/dL (14.0-18.0); Platelet Count 200 thou/uL (130-400)
[2021-08-07] MEDS: Heparin 10,000 UNITS/ 10 ML VIAL SLOW IVP SCH (14:46)
[2021-08-07] MEDS ORDERED: Warfarin Sodium 5 MG TAB PO SCH (17:00)
[2021-08-07] MEDS: Tamsulosin HCl 0.4 MG CAP PO SCH (20:31)
[2021-08-07] MEDS: Atorvastatin Calcium 10 MG TAB PO SCH (20:31)
[2021-08-07 20:57] LABS: PTT 159.1 sec (22.9-36.1)
[2021-08-08 06:23] LABS: INR-International Normal Ratio 1.1; Prothrombin Time 14.2 sec (12.0-14.7)
[2021-08-08 06:40] LABS: Anion Gap 16 mmol/L (10-20); BUN (Urea Nitrogen) 55 mg/dL (8.4-25.7); Calc. Creatinine Clearance 19 mL/min (70-130); Calcium 9.1 mg/dL (7.8-10.44); Carbon Dioxide 22 mmol/L (23-31); Chloride 102 mmol/L (98-107); Glucose 106 mg/dL (83-110); Potassium 4.3 mmol/L (3.5-5.1); Sodium 136 mmol/L (136-145)
[2021-08-08] MEDS: Heparin 10,000 UNITS/ 10 ML VIAL SLOW IVP SCH (07:31)
[2021-08-08] MEDS: Ferrous Sulfate 325 MG TAB PO SCH (09:16)
[2021-08-08] MEDS: Sevelamer Carbonate 800 MG TAB PO SCH ×2 (09:16→11:36)
[2021-08-08] MEDS: Calcitriol 0.25 MCG CAP PO SCH (09:16)
[2021-08-08] MEDS: NIFEdipine XL 60 MG TAB PO SCH (09:16)
[2021-08-08 14:22] LABS: PTT 133.7 sec (22.9-36.1)
[2021-08-08 15:38] VITALS: BP 145/83; TEMP 97.5
== END 2021-08-08 15:50 | disposition home health service (06) | DRG 683 ==
LOC: ERS 11:26 → 2NO 15:16 → T4-B 08-03 15:11
PROVIDERS: ADMIT Internal Medicine; ATTEND Internal Medicine
DX: N17.9 Acute kidney failure, unspecified (principal); N13.8 Other obstructive and reflux uropathy; I82.412 Acute embolism and thrombosis of left femoral vein; E87.2 Acidosis; Z20.822 Contact with and (suspected) exposure to COVID-19; N40.1 Benign prostatic hyperplasia with lower urinary tract symptoms; D50.9 Iron deficiency anemia, unspecified; E87.5 Hyperkalemia; R33.8 Other retention of urine; N25.81 Secondary hyperparathyroidism of renal origin; E83.39 Other disorders of phosphorus metabolism; N13.30 Unspecified hydronephrosis; D63.1 Anemia in chronic kidney disease; N18.9 Chronic kidney disease, unspecified; I12.9 Hypertensive chronic kidney disease with stage 1 through stage 4 chronic kidney disease, or unspecified chronic kidney disease; R31.0 Gross hematuria; Z79.899 Other long term (current) drug therapy
CPT/HCPCS: 36415; 51702; 71045; 74176; 76770; 80048; 80053; 81003; 82728; 83036; 83540; 83550; 83970; 84100; 85014; 85018; 85025; 85049; 85610; 85730; 93005; J1644; Q5105; U0003; U0005